=== PATIENT | male | born 1970 | race Caucasian/White ===

== ENCOUNTER → 2020-02-13 17:57 | Outpatient (CLI) | payer BC, SELFPAY ==
[2020-02-13 19:19] LABS: Chloride 99 mmol/L (98-107); Potassium 4.9 mmoL/L (3.5-5.1); Sodium 135 mmol/L (136-145)
[2020-02-13 19:21] LABS: Alanine Aminotransferase 13 U/L (12-78); Aspartate Amino Transferase 17 U/L (17-59); Blood Urea Nitrogen 14 mg/dl (9-20); Estimated Glomerular Filt Rate 102 ml/min (>60); GFR (African American) 123 ML/MIN (>60)
[2020-02-13 19:22] LABS: Albumin Level 3.8 g/dl (3.5-5.0); Albumin/Globulin Ratio 1.3 (1.1-1.8); Alkaline Phosphatase 101 U/L (38-126); Anion Gap 11.9 mEq/L (5-15); Bilirubin,Total 0.3 mg/dl (0.2-1.3); Calcium 9.3 mg/dl (8.4-10.2); Carbon Dioxide 29 mmol/L (22.0-30.0); Chol/HDL Ratio 4.8 (1-3.5); Cholesterol 203 mg/dl (140-200); Glucose 137 mg/dl (74-100); HDL Cholesterol 42 mg/dl (40-60); Total Protein,Serum 6.8 g/dl (6.3-8.2); Triglycerides 169 mg/dl (30-150); VLDL Cholesterol 34 mg/dL (0-40)
[2020-02-13 19:25] LABS: Hemoglobin A1C 8.5 % (4.0-6.0)
[2020-02-13 19:33] LABS: Direct LDL Cholesterol 136.82 mg/dL (100-129)
== END ==
PROVIDERS: Visit Provider Family Medicine
DX: E11.9 Type 2 diabetes mellitus without complications (principal); Z79.4 Long term (current) use of insulin
CPT/HCPCS: 80053; 80061; 83036

== ENCOUNTER → 2020-08-11 10:55 | Outpatient (CLI) | payer OTHER, SELFPAY ==
--- NOTE | 2020-08-11 11:04 | XR_ITS ---
PROCEDURE: XR KNEE RT 4V CLINICAL INDICATION: knee pain COMPARISON: No exams were available for comparison FINDINGS: No fracture or dislocation. No lytic or blastic change. There is normal mineralization. Moderate osteoarthritic changes are present involving the medial compartment and patellofemoral joint with small knee joint effusion noted. Other findings:None. IMPRESSION: Moderate osteoarthritis with possible small suprapatellar effusion Dictated by: Albert Carrero MD 08/11/2020 18:23 Albert Carrero MD in [place] 08/11/2020 18:23
== END ==
PROVIDERS: PCP Family Medicine; Visit Provider Family Medicine
DX: M25.561 Pain in right knee (principal)
CPT/HCPCS: 73564

== ENCOUNTER → 2020-10-27 14:55 | Outpatient (CLI) | payer OTHER, SELFPAY ==
[2020-10-27 15:08] LABS: Basophils # 0.1 K/mm3 (0-0.2); Basophils % 0.6 % (0.1-2.0); Eosinophils # 0.9 K/mm3 (0.0-0.4); Eosinophils % 6.2 % (0.1-12.0); Hematocrit 45.6 % (42.0-52.0); Hemoglobin 14.8 g/dL (14.1-18.0); Lymphocytes # 4.7 K/mm3 (0.7-4.5); Lymphocytes % 32.9 % (10-50); Mean Corpuscular HGB Conc 32.4 g/dL (31.8-35.4); Mean Corpuscular Hemoglobin 28.8 pg (27.0-31.2); Mean Corpuscular Volume 88.8 fl (80-94); Mean Platelet Volume 8.9 fl (7.4-10.4); Neutrophils # 7.6 K/mm3 (1.8-7.8); Neutrophils % 53.2 % (37.0-80.0); Platelet Count 360 K/mm3 (142-424); Red Blood Count 5.13 M/mm3 (4.60-6.20); Red Cell Distribution Width 12.9 % (11.5-17.5); White Blood Count 14.3 K/mm3 (4.8-10.8)
[2020-10-27 15:12] LABS: Chloride 102 mmol/L (98-107); Potassium 4.8 mmoL/L (3.5-5.1); Sodium 139 mmol/L (136-145)
[2020-10-27 15:14] LABS: Blood Urea Nitrogen 13 mg/dl (9-20); Estimated Glomerular Filt Rate 118 ml/min (>60)
[2020-10-27 15:15] LABS: Alanine Aminotransferase 11 U/L (12-78); Albumin Level 3.9 g/dl (3.5-5.0); Albumin/Globulin Ratio 1.3 (1.1-1.8); Alkaline Phosphatase 129 U/L (38-126); Anion Gap 13.8 mEq/L (5-15); Aspartate Amino Transferase 24 U/L (17-59); Bilirubin,Total 0.5 mg/dl (0.2-1.3); Calcium 9.4 mg/dl (8.4-10.2); Carbon Dioxide 28 mmol/L (22.0-30.0); Chol/HDL Ratio 3.7 (1-3.5); Cholesterol 121 mg/dl (140-200); GFR (African American) 143 ML/MIN (>60); Glucose 108 mg/dl (74-100); HDL Cholesterol 33 mg/dl (40-60); Total Protein,Serum 6.9 g/dl (6.3-8.2); Triglycerides 96 mg/dl (30-150); VLDL Cholesterol 19 mg/dL (0-40)
[2020-10-27 15:27] LABS: Direct LDL Cholesterol 62.29 mg/dL (100-129)
[2020-10-27 15:46] LABS: Thyroid Stimulating Hormone 2.23 uIU/mL (0.465-4.68)
[2020-11-11 10:23] LABS: Testosterone,Free 1.6 pg/mL (7.2-24.0)
== END ==
PROVIDERS: Visit Provider Family Medicine
DX: E11.9 Type 2 diabetes mellitus without complications (principal); E78.5 Hyperlipidemia, unspecified; E66.01 Morbid (severe) obesity due to excess calories; Z68.42 Body mass index [BMI] 45.0-49.9, adult; Z79.4 Long term (current) use of insulin
CPT/HCPCS: 80053; 80061; 83036; 84402; 84403; 84436; 84443; 85025

== ENCOUNTER → 2021-03-08 18:25 | Outpatient (CLI) | payer BC, SELFPAY ==
[2021-03-08 18:53] LABS: Basophils # 0.1 K/mm3 (0-0.2); Basophils % 0.7 % (0.1-2.0); Eosinophils # 0.7 K/mm3 (0.0-0.4); Eosinophils % 4.3 % (0.1-12.0); Hematocrit 43.7 % (42.0-52.0); Hemoglobin 14.4 g/dL (14.1-18.0); Lymphocytes # 5.2 K/mm3 (0.7-4.5); Lymphocytes % 31.5 % (10-50); Mean Corpuscular HGB Conc 32.9 g/dL (31.8-35.4); Mean Corpuscular Hemoglobin 28.3 pg (27.0-31.2); Mean Corpuscular Volume 86.1 fl (80-94); Mean Platelet Volume 8.6 fl (7.4-10.4); Monocytes # 0.9 K/mm3 (0.1-1.0); Monocytes % 5.6 % (1.7-9.3); Neutrophils # 9.6 K/mm3 (1.8-7.8); Neutrophils % 57.9 % (37.0-80.0); Platelet Count 379 K/mm3 (142-424); Red Blood Count 5.08 M/mm3 (4.60-6.20); Red Cell Distribution Width 13.6 % (11.5-17.5); White Blood Count 16.5 K/mm3 (4.8-10.8)
[2021-03-08 18:59] LABS: MANUAL DIFFERENTIAL MANUAL DIFFERENTIAL (MANUAL DIFF)
[2021-03-08 19:39] LABS: Eosinophils % 2 % (0-3); Lymphocytes % 31 % (10-50); Monocytes % 2 % (2-9); Neutrophils % 65 % (42-76); Platelet Estimate Normal; RBC Morphology Normal; Total Cells Counted 100
[2021-03-08 20:31] LABS: Hemoglobin A1C 6.9 % (4.0-6.0)
[2021-03-08 20:35] LABS: Alanine Aminotransferase 10 U/L (12-78); Albumin Level 3.9 g/dl (3.5-5.0); Albumin/Globulin Ratio 1.2 (1.1-1.8); Alkaline Phosphatase 140 U/L (38-126); Anion Gap 12.8 mEq/L (5-15); Aspartate Amino Transferase 20 U/L (17-59); Bilirubin,Total 0.5 mg/dl (0.2-1.3); Blood Urea Nitrogen 13 mg/dl (9-20); Calcium 8.9 mg/dl (8.4-10.2); Carbon Dioxide 31 mmol/L (22.0-30.0); Chloride 99 mmol/L (98-107); Chol/HDL Ratio 3.6 (1-3.5); Cholesterol 156 mg/dl (140-200); Estimated Glomerular Filt Rate 118 ml/min (>60); GFR (African American) 143 ML/MIN (>60); Globulin 3.2 g/dL (1.3-3.2); Glucose 76 mg/dl (74-100); HDL Cholesterol 43 mg/dl (40-60); Potassium 4.8 mmoL/L (3.5-5.1); Sodium 138 mmol/L (136-145); Total Protein,Serum 7.1 g/dl (6.3-8.2); Triglycerides 83 mg/dl (30-150); VLDL Cholesterol 17 mg/dL (0-40)
[2021-03-08 21:05] LABS: Prostate Specific Ag Screen 0.3 ng/ml (0.0-4.0)
[2021-03-13 14:39] LABS: Testosterone,Free 3.1 pg/mL (7.2-24.0)
== END ==
PROVIDERS: Visit Provider Family Medicine
DX: E11.9 Type 2 diabetes mellitus without complications (principal); E78.5 Hyperlipidemia, unspecified; E66.9 Obesity, unspecified; Z68.42 Body mass index [BMI] 45.0-49.9, adult; Z79.4 Long term (current) use of insulin; Z12.5 Encounter for screening for malignant neoplasm of prostate
CPT/HCPCS: 80053; 80061; 83036; 84402; 84403; 85007; 85025; G0103

== ENCOUNTER 2021-07-28 10:11 | Outpatient (CLI) | payer BC, SELFPAY ==
[2021-07-28 11:30] VITALS: BP 117/70; PULSE 70; RESP 18; TEMP 36.7; O2SAT 96
[2021-07-28 12:00] VITALS: BP 122/74; PULSE 73; RESP 18; O2SAT 95
[2021-07-28 12:15] VITALS: BP 121/68; PULSE 73; RESP 18; O2SAT 97
[2021-07-28 12:30] VITALS: BP 118/75; PULSE 69; RESP 18; O2SAT 97
[2021-07-28 12:45] VITALS: BP 125/82; PULSE 65; RESP 18; O2SAT 96
[2021-07-28 13:01] VITALS: BP 146/77; PULSE 67; RESP 18; TEMP 36.6; O2SAT 98
== END 2021-07-28 13:01 | disposition home or self-care (01) ==
LOC: COVID.OUT 10:12
PROVIDERS: PCP Family Medicine; Visit Provider Family Medicine
DX: U07.1 COVID-19 (principal); Z23 Encounter for immunization
CPT/HCPCS: 96365

== ENCOUNTER → 2023-01-10 23:10 | Outpatient (CLI) | payer BC, SELFPAY ==
[2023-01-10 19:12] LABS: Basophils # 0.1 K/mm3 (0-0.2); Basophils % 0.4 % (0.1-2.0); Eosinophils # 0.7 K/mm3 (0.0-0.4); Eosinophils % 6.2 % (0.1-12.0); Hemoglobin 13.7 g/dL (14.1-18.0); Lymphocytes # 3.2 K/mm3 (0.7-4.5); Lymphocytes % 29.3 % (10-50); Mean Corpuscular HGB Conc 31.8 g/dL (31.8-35.4); Mean Corpuscular Volume 88.2 fl (80-94); Mean Platelet Volume 9.4 fl (7.4-10.4); Monocytes # 0.9 K/mm3 (0.1-1.0); Monocytes % 7.8 % (1.7-9.3); Neutrophils # 6.2 K/mm3 (1.8-7.8); Neutrophils % 56.3 % (37.0-80.0); Platelet Count 333 K/mm3 (142-424); Red Blood Count 4.87 M/mm3 (4.60-6.20); Red Cell Distribution Width 13.6 % (11.5-17.5); White Blood Count 10.9 K/mm3 (4.8-10.8)
[2023-01-10 19:56] LABS: Alanine Aminotransferase 16 U/L (12-78); Albumin Level 3.5 g/dl (3.5-5.0); Albumin/Globulin Ratio 1.1 (1.1-1.8); Alkaline Phosphatase 142 U/L (38-126); Anion Gap 14.6 mEq/L (5-15); Aspartate Amino Transferase 22 U/L (17-59); Bilirubin,Total 0.2 mg/dl (0.2-1.3); Blood Urea Nitrogen 9 mg/dl (9-20); Calcium 8.7 mg/dl (8.4-10.2); Carbon Dioxide 29 mmol/L (22.0-30.0); Chloride 100 mmol/L (98-107); Chol/HDL Ratio 3.5 (1-3.5); Cholesterol 140 mg/dl (140-200); Estimated Glomerular Filt Rate 140 ml/min (>60); GFR (African American) 170 ML/MIN (>60); Globulin 3.2 g/dL (1.3-3.2); Glucose 122 mg/dl (74-100); HDL Cholesterol 40 mg/dl (40-60); Potassium 4.6 mmoL/L (3.5-5.1); Sodium 139 mmol/L (136-145); Total Protein,Serum 6.7 g/dl (6.3-8.2); Triglycerides 91 mg/dl (30-150); VLDL Cholesterol 18 mg/dL (0-40)
[2023-01-10 20:08] LABS: Direct LDL Cholesterol 77.42 mg/dL (100-129)
[2023-01-10 20:13] LABS: Hemoglobin A1C 7.1 % (4.0-6.0)
[2023-01-10 20:28] LABS: Prostate Specific Ag Screen 0.3 ng/ml (0.0-4.0); Thyroid Stimulating Hormone 2.56 uIU/mL (0.465-4.68)
[2023-01-10 21:37] LABS: Free T4 (Free Thyroxine) 1.26 ng/dl (0.78-2.19)
[2023-01-16 04:07] LABS: Free Testosterone (Direct) 1.1 pg/mL (7.2-24.0); Testosterone, Total, LC/MS 91.3 ng/dL (264.0-916.0)
== END ==
PROVIDERS: PCP Family Medicine; Visit Provider Family Medicine
DX: E11.9 Type 2 diabetes mellitus without complications (principal); E78.5 Hyperlipidemia, unspecified; Z12.5 Encounter for screening for malignant neoplasm of prostate; Z79.4 Long term (current) use of insulin
CPT/HCPCS: 80053; 80061; 83036; 84402; 84439; 84443; 85025; G0103

== ENCOUNTER 2024-04-05 09:20 | Outpatient (CLI) | payer BC, SELFPAY ==
[2024-04-05 18:47] LABS: Basophils # 0.1 K/mm3 (0-0.2); Basophils % 0.7 % (0.1-2.0); Eosinophils # 0.4 K/mm3 (0.0-0.4); Hematocrit 44.2 % (42.0-52.0); Hemoglobin 13.6 g/dL (14.1-18.0); Lymphocytes # 2.9 K/mm3 (0.7-4.5); Lymphocytes % 27.3 % (10-50); Mean Corpuscular HGB Conc 30.7 g/dL (31.8-35.4); Mean Corpuscular Hemoglobin 27.9 pg (27.0-31.2); Mean Platelet Volume 9.4 fl (7.4-10.4); Monocytes # 0.8 K/mm3 (0.1-1.0); Monocytes % 7.1 % (1.7-9.3); Neutrophils # 6.6 K/mm3 (1.8-7.8); Neutrophils % 61.1 % (37.0-80.0); Platelet Count 339 K/mm3 (142-424); Red Blood Count 4.86 M/mm3 (4.60-6.20); Red Cell Distribution Width 14.2 % (11.5-17.5); White Blood Count 10.8 K/mm3 (4.8-10.8)
[2024-04-05 19:14] LABS: Alanine Aminotransferase 16 U/L (12-78); Albumin Level 3.5 g/dl (3.5-5.0); Albumin/Globulin Ratio 1.1 (1.1-1.8); Alkaline Phosphatase 111 U/L (38-126); Aspartate Amino Transferase 22 U/L (17-59); Bilirubin,Total 0.5 mg/dl (0.2-1.3); Blood Urea Nitrogen 8 mg/dl (9-20); Calcium 9.1 mg/dl (8.4-10.2); Carbon Dioxide 29 mmol/L (22.0-30.0); Chloride 104 mmol/L (98-107); Chol/HDL Ratio 3.4 (1-3.5); Cholesterol 133 mg/dl (140-200); Estimated Glomerular Filt Rate 139 ml/min (>60); GFR (African American) 169 ML/MIN (>60); Globulin 3.3 g/dL (1.3-3.2); Glucose 92 mg/dl (74-100); HDL Cholesterol 39 mg/dl (40-60); Sodium 137 mmol/L (136-145); Total Protein,Serum 6.8 g/dl (6.3-8.2); Triglycerides 78 mg/dl (30-150); VLDL Cholesterol 16 mg/dL (0-40)
[2024-04-05 19:25] LABS: Direct LDL Cholesterol 74.98 mg/dL (100-129)
[2024-04-05 19:33] LABS: Anion Gap 8.8 mEq/L (5-15); Potassium 4.8 mmoL/L (3.5-5.1)
[2024-04-05 19:44] LABS: Prostate Specific Ag Screen 0.2 ng/ml (0.0-4.0)
[2024-04-07 06:46] LABS: Testosterone,Total 75 ng/dL (264-916)
[2024-04-09 14:17] LABS: Creatinine,Urine Random 45 mg/dL (Not Estab.)
[2024-04-09 14:20] LABS: Microalbumin < 6.000 mg/L (0-16.7)
== END 2024-04-05 23:59 | disposition home or self-care (01) ==
LOC: LAB.DROPOF 04-08 09:20
PROVIDERS: PCP Family Medicine; Visit Provider Family Medicine
DX: E29.1 Testicular hypofunction (principal); E11.9 Type 2 diabetes mellitus without complications
CPT/HCPCS: 80053; 80061; 82043; 82570; 84403; 85025; G0103

== ENCOUNTER 2024-11-27 14:50 | Outpatient (CLI) | payer BC, SELFPAY ==
[2024-11-27 18:43] LABS: Alanine Aminotransferase 16 U/L (12-78); Albumin Level 3.6 g/dl (3.5-5.0); Albumin/Globulin Ratio 1.1 (1.1-1.8); Alkaline Phosphatase 114 U/L (38-126); Anion Gap 10.5 mEq/L (5-15); Aspartate Amino Transferase 20 U/L (17-59); Bilirubin,Total 0.5 mg/dl (0.2-1.3); Blood Urea Nitrogen 9 mg/dl (9-20); Calcium 9.1 mg/dl (8.4-10.2); Carbon Dioxide 30 mmol/L (22.0-30.0); Chloride 100 mmol/L (98-107); Cholesterol 132 mg/dl (140-200); Estimated Glomerular Filt Rate 117 ml/min (>60); GFR (African American) 141 ML/MIN (>60); Globulin 3.2 g/dL (1.3-3.2); Glucose 107 mg/dl (74-100); HDL Cholesterol 33 mg/dl (40-60); Potassium 4.5 mmoL/L (3.5-5.1); Sodium 136 mmol/L (136-145); Total Protein,Serum 6.8 g/dl (6.3-8.2); Triglycerides 79 mg/dl (30-150); VLDL Cholesterol 16 mg/dL (0-40)
[2024-11-27 19:14] LABS: Thyroid Stimulating Hormone 1.82 uIU/mL (0.465-4.68)
[2024-11-27 19:33] LABS: Hepatitis C Ab Qual. W/ RFX NEGATIVE (Negative)
[2024-11-27 20:16] LABS: Direct LDL Cholesterol 82 mg/dL (100-129)
[2024-11-28 11:10] LABS: HIV Combo NEGATIVE (Negative)
[2024-11-29 08:13] LABS: Testosterone,Total 38 ng/dL (264-916)
== END 2024-11-27 23:59 | disposition home or self-care (01) ==
LOC: LAB.DROPOF 11-28 09:45
PROVIDERS: PCP Family Medicine; Visit Provider Family Medicine
DX: Z11.59 Encounter for screening for other viral diseases (principal); Z11.4 Encounter for screening for human immunodeficiency virus [HIV]; E66.01 Morbid (severe) obesity due to excess calories; Z68.42 Body mass index [BMI] 45.0-49.9, adult; E78.5 Hyperlipidemia, unspecified; E11.9 Type 2 diabetes mellitus without complications; Z79.84 Long term (current) use of oral hypoglycemic drugs; Z79.85 Long-term (current) use of injectable non-insulin antidiabetic drugs; Z79.4 Long term (current) use of insulin; Z68.43 Body mass index [BMI] 50.0-59.9, adult
CPT/HCPCS: 80053; 80061; 84146; 84403; 84443; 86803; 87389

== ENCOUNTER 2024-12-31 09:29 | Outpatient (CLI) | payer BC, SELFPAY ==
--- NOTE | 2024-12-31 09:15 | MR_ITS ---
FINAL REPORT CLINICAL HISTORY: elevated prolactin COMPARISON: None FINDINGS: Multiplanar MR imaging of the brain was performed without and with contrast. There is an intrasellar mass present, which measures 1.6 cm in the craniocaudal dimension, 1.3 cm in the transverse dimension, 2.0 cm in the AP dimension. This mass contains smooth margins, and enhances homogeneously after contrast administration, best seen on image #5 of series 12 through 14. The infundibulum is deviated to the left. This mass has smooth margins, and is either adjacent to the pituitary gland to arises from the pituitary gland. The broadest margin involves the lateral aspect of the sella turcica. This mass mildly displaces the cavernous portion of the carotid artery laterally. There are preserved flow voids in the bilateral carotid arteries. This mass either indents or actually invades the sphenoid sinus. There is no evidence of intracranial hemorrhage or mass. No abnormal extra-axial fluid collection is seen. The ventricular size is within normal limits. posterior fossa and brainstem have an unremarkable appearance. No area of abnormal restricted diffusion is identified. No abnormal contrast enhancement is seen. Normal major vessel vascular flow voids are noted. IMPRESSION: Large enhancing mass in the sella turcica as described above. The infundibulum of the pituitary gland is deviated to the left, and there is slight lateral displacement of the cavernous portion of the left carotid artery. The overall appearance and the degree of enhancement is not typical for pituitary macroadenoma. Included in the differential diagnosis are meningioma, lymphoma, or germ cell tumor. Neurosurgical evaluation is highly recommended. Reviewed, Interpreted and Dictated by Brian Olivas MD Transcribed by Nathaly aBtres Authenticated and [facility]
[2024-12-31 09:52] LABS: Blood Urea Nitrogen 13 mg/dl (9-20); Estimated Glomerular Filt Rate 100 ml/min (>60); GFR (African American) 121 ML/MIN (>60)
[2024-12-31] MEDS: GADOTERIDOL INJ 10ML SYRINGE 10 ML IV (10:55)
[2024-12-31] MEDS: SODIUM CHLORIDE 0.9% 50ML BAG 20 ML IV (10:55)
[2024-12-31] MEDS: SODIUM CHLORIDE 0.9% 10ML SYR (RAD ONLY) 10 ML IV (10:55)
[2024-12-31] MEDS: GADOTERIDOL INJ 20ML SYRINGE 20 ML IV (10:56)
== END 2024-12-31 23:59 | disposition home or self-care (01) ==
LOC: RAD 09:30
PROVIDERS: PCP Family Medicine; Visit Provider Family Medicine
DX: G93.89 Other specified disorders of brain (principal); R90.89 Other abnormal findings on diagnostic imaging of central nervous system; R79.89 Other specified abnormal findings of blood chemistry
CPT/HCPCS: 36415; 70553; 82565; 84520; A9576

== ENCOUNTER 2025-07-21 08:28 | Outpatient (CLI) | payer BC, SELFPAY ==
--- OUTSIDE RECORDS SUMMARY | 2025-06-24 08:30 | XMS_ITS | Encounter Summary ---
Author Organization [facility] Address [address] [place] [address] Care Team Providers Care Canvas Baster Jumpbasting Name Role Phone Unavailable Primary Care Provider Unavailabl e Reason for Visit * Reason Comments Labs Only Encounter Details Date Type Department Care Team (Late st Contact Info) Description 06/24/2025 8:30 AM EST Clinical Support [facility] [address] [place], [place] [phone] Grayson Barney MD [address] [place] [address] [address] [place] [address] Rocio Joy PA-C [address] [place] [address] [place] [address] Carmen Sagastume 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) Social History Tobacco Use Types Packs/Day Years Used Date Smoking Tobacco: Former Cigarettes 0.5 4 1 987 - 1990 Smokeless Tobacco: Never PHQ-2 Answer Date Recorded PHQ-2 SCORE 0 01/30/2025 Sex and Gender Information Value Date Recorded Sex Assigned at Not on file Legal Sex Male 9:37 AM EDT Gender Identity Not on file Sexual Orientation Not on file documented as of this encounter Progress Notes * Carmen Sagastume - 06/24/2025 8:30 AM EST Venipuncture Progress Notes RAC: LAC:1 (R) Hand: (L) Hand: Site Checked: yes Patient on anticoagulation therapy: no Tubes drawn: 1 red Tubes : no All tubes were labeled in room with patient present. My initials todays date and time of lab drawn were written on label, Pressure dressing applied. Instructions given in case of bleeding. Pt verbalized understanding. documented in this encounter Plan of Treatment Upcoming Encounters Date Type Department Care Team (Late st Contact Info) Description 10/21/2025 9:30 AM EDT Office Visit [facility] [address] [place] [phone] Grayson Barney MD [address] [place] [address] documented as of this encounter Visit Diagnoses Diagnosis Prolactinoma (HCC) [D35.2]- Primary Benign neoplasm of pituitary gland and craniopharyngeal duct (pouch) documented in this encounter
[2025-07-21 14:55] LABS: Hematocrit 43.3 % (42.0-52.0); Hemoglobin 13.7 g/dL (14.1-18.0); Immature Granulocytes % 0.2 %; Mean Corpuscular HGB Conc 31.6 g/dL (31.8-35.4); Mean Corpuscular Hemoglobin 27.6 pg (27.0-31.2); Mean Corpuscular Volume 87.3 fl (80-94); Nucleated Red Blood Cells % 0 %; Platelet Count 326 K/mm3 (142-424); Red Blood Count 4.96 M/mm3 (4.60-6.20); Red Cell Distribution Width-SD 42.1 fL; White Blood Count 10.3 K/mm3 (4.8-10.8)
[2025-07-21 15:40] LABS: Alanine Aminotransferase 14 U/L (12-78); Albumin Level 4.2 g/dl (3.5-5.0); Albumin/Globulin Ratio 1.3 (1.1-1.8); Alkaline Phosphatase 135 U/L (38-126); Anion Gap 11.8 mEq/L (5-15); Aspartate Amino Transferase 21 U/L (17-59); Bilirubin,Total 0.7 mg/dl (0.2-1.3); Blood Urea Nitrogen 9 mg/dl (9-20); Calcium 9.5 mg/dl (8.4-10.2); Carbon Dioxide 27 mmol/L (22.0-30.0); Chloride 104 mmol/L (98-107); Cholesterol 116 mg/dl (140-200); Creatinine,Serum 0.80 mg/dl (0.66-1.25); Estimated Glomerular Filt Rate 100 ml/min (>60); GFR (African American) 121 ML/MIN (>60); Globulin 3.2 g/dL (1.3-3.2); Glucose 77 mg/dl (74-100); HDL Cholesterol 33 mg/dl (40-60); Potassium 4.8 mmoL/L (3.5-5.1); Sodium 138 mmol/L (136-145); Total Protein,Serum 7.4 g/dl (6.3-8.2); Triglycerides 112 mg/dl (30-150)
--- OUTSIDE RECORDS SUMMARY | 2025-07-22 10:00 | XMS_ITS | Encounter Summary ---
Author Organization [facility] Address [address] [place] [address] Care Team Providers Care Car Mover Name Role Phone Unavailable Primary Care Provider Unavailabl e Reason for Visit * Reason Comments Pituitary Adenoma Encounter Details Date Type Department Care Team (Late st Contact Info) Description 07/22/2025 10:00 AM EST Office Visit [facility] [address] [place] [address] Grayson Barney MD [address] [facility] [address] [place] [address] Prolactinoma (HCC) (Primary Dx) Social History Tobacco Use Types Packs/Day Years Used Date Smoking Tobacco: Former Cigarettes 0.5 4 1 987 - 1990 Smokeless Tobacco: Never Tobacco Cessation:Counseling Given: Not Answered PHQ-2 Answer Date Recorded PHQ-2 SCORE 0 01/30/2025 Sex and Gender Information Value Date Recorded Sex Assigned at Not on file Legal Sex Male 9:37 AM EDT Gender Identity Not on file Sexual Orientation Not on file documented as of this encounter Last Filed Vital Signs Vital Sign Reading Time Taken Comments Blood Pressure 124/74 07/22/2025 10:11 AM EST Pulse 79 07/22/2025 10:11 AM EST Temperature - - Respiratory Rate 14 07/22/2025 10:11 AM EST Oxygen Saturation - - Inhaled Oxygen Concentration - - Weight 154.7 kg (341 lb) 07/22/2025 10:11 AM EST Height 188 cm (6' 2 ) 07/22/2025 10:11 AM EST Body Mass Index 43.78 07/22/2025 10:11 AM EST documented in this encounter Progress Notes * Grayson Barney MD - 07/22/2025 10:00 AM EST [facility] Grayson Colin MD 07/22/25 Vitaly Herman [id number] Reason For Visit: Chief Complaint Patient presents with Pituitary Adenoma Patient was referred by No ref. provider found Subjective: Vitaly Herman is a 55 y.o. male coming for a follow-up for prolactinoma and pituitary macroadenoma Patient states that was diagnosed with prolactinoma in [place] 17 yo ago, took Cabergoline for ayear but stopped taking after that Patient is currently on Cabergoline 0.5 mg every Monday and Testosterone gel 1 pump of 40.5mg daily Patient reports improvement in his energy level and improvement in low sex drive and erectile dysfunction. Denies breast tenderness. Denies headache, visual disturbance, nausea, vomiting, abdominal pain, syncope or dizziness. Past Medical History: Diagnosis Date Diabetes mellitus (HCC) Hyperlipidemia Hypertension Low testosterone in male Pituitary tumor Past Surgical History: Procedure Laterality Date HX OTHER SURGICAL HISTORY broken Jaw repair/oral surgery at 9 yrs old Family History Problem Relation Name Age of Onset Diabetes Father Current Outpatient Medications Medication Sig Dispense Refill cabergoline (DOSTINEX) 0.5 mg tablet Take 1 Tablet by mouth As directed. On Mondays and 12 Tablet 1 metFORMIN (GLUCOPHAGE) 1,000 mg tablet Take 1,000 mg by mouth Twice a day. insulin glargine (LANTUS SOLOSTAR U-100 INSULIN) 100 unit/mL (3 mL) InPn Administer 60 Units subcutaneously At bedtime. atorvastatin (LIPITOR) 20 mg tablet Take 20 mg by mouth At bedtime. lisinopriL (PRINIVIL) 20 mg tablet Take 20 mg by mouth Once Daily. tirzepatide (MOUNJARO) 10 mg/0.5 mL sub-Q injection Administer 10 mg subcutaneously Every 7 days testosterone 1.62 % (40.5 mg/2.5 gram) GlPk 40.5 mg by Transdermal route Once Daily. No current facility-administered medications for this visit. No Known Allergies Social History Socioeconomic History Marital status: Spouse name: Not on file Number of children: Not on file Years of education: Not on file Highest education level: Not on file Occupational History Not on file Tobacco Use Smoking status: Former Current packs/day: 0.00 Average packs/day: 0.5 packs/day for 4.0 years (2.0 ttl pk-yrs) Types: Cigarettes Start date: 1986 Quit date: 1990 Years since quittin.9 Smokeless tobacco: Never Substance and Sexual Activity Alcohol use: Not on file Drug use: Not on file Sexual activity: Not on file Other Topics Concern Not on file Social History Narrative Not on file Social Drivers of Health Financial Resource Strain: Not on file Food Insecurity: Not on file Transportation Needs: Not on file Physical Activity: Not on file Stress: Not on file Social Connections: Not on file Intimate Partner Violence: Not on file Housing Stability: Not on file Review of Systems Pertinent items are noted in HPI. Objective: BP 124/74 Pulse 79 Resp 14 Ht 6' 2 (188 cm) Wt (!) 154.7 kg (341 lb) BMI 43.78 kg/m?? General: alert, cooperative Thyroid: no palpable nodule Lung: clear to auscultation bilaterally Heart: regular rate and rhythm, S1, S2 normal, no murmur, click, rub or gallop Lab Review Latest Reference Range & Units 02/11/25 08:01 06/24/25 08:09 PROLACTIN ng/mL 124.00 16.80 Assessment: 1 Pituitary macroadenoma and elevated prolactin - Patient states that was diagnosed with prolactinoma in [place] 17 yo ago (around 2005), took Cabergoline for a year but stopped taking after that -Patient is currently on Cabergoline 0.5 mg every Monday and Testosterone gel 1 pump of 40.5 mg daily - MRI brain done on 12/31/24 showed pituitary nodule measuring 1.6 x 1.3 2.0 cm, infundibulum is deviated to the left, involves the lateral aspect of the sella turcica, and mildly displaces the cavernous portion of the carotid artery laterally. - Labs done on 11/27/24 showed TSH 1.82, prolactin 1526 ng/mL and total testosterone of 38 ng/dL - Labs done on 02/11/25 showed prolactin 124 ng/mL, total testosterone 63.5 ng/dL, normal CMP, IGF-1,LH, FSH, ACTH, cortisol, TSH and FT4 - Labs done on 06/24/25 showed prolactin 16.8 Plan: 1 Pituitary macroadenoma and elevated prolactin - Continue Cabergoline 0.5 mg every Monday and - I will check CMP and prolactin before next visit Plan of care was discussed in detail with the patient who verbalized understanding and agreed. Patient was given opportunity to ask questions which were answered appropriately. Follow up: 3 months Grayson Garrido MD 07/22/25 10:17 AM documented in this encounter Plan of Treatment Upcoming Encounters Date Type Department Care Team (Late st Contact Info) Description 10/21/2025 9:30 AM EDT Office Visit [facility] [address] [place] [address] Grayson Barney MD [address] [place] [address] Scheduled Orders Name Type Priority Associated Diagnoses Orde r Schedule Comprehensive Metabolic Panel Lab Routine Prolactinoma (HCC) Expected: 10/20/2025, Expires: 07/22/2026 Prolactin Lab Routine Prolactinoma (HCC) Expected: 10/20/2025, Expires: 07/22/2026 documented as of this encounter Visit Diagnoses Diagnosis Prolactinoma (HCC)- Primary Benign neoplasm of pituitary gland and craniopharyngeal duct (pouch) documented in this encounter
[2025-07-22 10:12] LABS: Testosterone,Total 251 ng/dL (264-916)
--- OUTSIDE RECORDS SUMMARY | 2025-07-23 08:34 | XMS_ITS | Encounter Summary ---
Author Organization [facility] Address [address] [place] [address] Care Team Providers Care Retail Director Name Role Phone Unavailable Primary Care Provider Unavailabl e Encounter Details Date Type Department Care Team (Latest Contact Info) Description 06/24/2025 Travel Social History Tobacco Use Types Packs/Day Years [...] on file documented as of this encounter Plan of Treatment Upcoming Encounters Date Type Department Care Team (Late st Contact Info) Description 10/21/2025 9:30 AM EDT Office Visit [facility] [address] [place] [address] Grayson Barney MD [address] [place] [address] [place] [address] documented as of this encounter Visit Diagnoses Not on filedocumented in this encounter
--- OUTSIDE RECORDS SUMMARY | 2025-07-23 08:34 | XMS_ITS | Encounter Summary ---
Author Organization [facility] Address [address] [place] [address] Care Team Providers Care Engineering Group Manager Name Role Phone Unavailable Primary Care Provider Unavailabl e Reason for Visit * Reason Onset Date Comments Medications Refill 07/17/2025 Encounter Details Date Type Department Care Team (Late st Contact Info) Description 07/17/2025 Refill [facility] [address] [place] [phone] Grayson Barney MD [address] [place] [address] Pituitary macroadenoma (HCC); Prolactin increased Social History Tobacco Use Types Packs/Day Years [...] on file documented as of this encounter Miscellaneous Notes * Telephone Encounter - Grayson Barney MD - 07/17/2025 1:27 PM EST Please schedule a follow-up appointment documented in this encounter Plan of Treatment Upcoming Encounters Date Type Department Care Team (Late st Contact Info) Description 10/21/2025 9:30 AM EDT Office Visit [facility] [address] [facility] [address] Grayson Barney MD [address] [place] [address] documented as of this encounter Visit Diagnoses Diagnosis Pituitary macroadenoma (HCC) Benign neoplasm of pituitary gland and craniopharyngeal duct (pouch) Prolactin increased Other and unspecified anterior pituitary hyperfunction documented in this encounter
--- OUTSIDE RECORDS SUMMARY | 2025-07-23 08:34 | XMS_ITS | Encounter Summary ---
Author Organization [facility] Address [address] [place] [address] Care Team Providers Care Social Worker Health Services Name Role Phone Unavailable Primary Care Provider Unavailabl e Encounter Details Date Type Department Care Team (Late st Contact Info) Description 06/25/2025 Results Follow-Up [facility] [address] [facility] [address] [place] [address] Grayson Barney MD [address] [place] [address] [place] [address] Prolactin Social History Tobacco Use Types Packs/Day Years [...] [facility] [address] [place] [address] Grayson Barney MD [address] [facility] [address] [place] [address] documented as of this encounter Visit Diagnoses Not on filedocumented in this encounter
--- OUTSIDE RECORDS SUMMARY | 2025-07-23 08:35 | XMS_ITS | Encounter Summary ---
Author Organization [facility] Address [address] [place] [address] Care Team Providers Care Juke Box Mechanic Name Role Phone Unavailable Primary Care Provider Unavailabl e Encounter Details Date Type Department Care Team (Latest Contact Info) Description 07/22/2025 Travel Social History Tobacco Use Types Packs/Day [...] AM EDT Office Visit [facility] [address] [place] [address] Grayson Barney MD [address] [place] [address] [place] [address] documented as of this encounter Visit Diagnoses Not on filedocumented in this encounter
--- OUTSIDE RECORDS SUMMARY | 2025-07-23 08:35 | XMS_ITS | Clinical Summary ---
Author Organization [facility] Address [address] [place] [phone] Phone Care Team Providers Care Radio Control Crane Operator Name Role Phone Unavailable Primary Care Provider Unavailabl e Allergies No known active allergies Medications No known medications Active Problems No known active problems Family History Medical History Relation Name Comments Diabetes Father Hypertension Father Relation Name Status Comments Father Social History Tobacco Use Types Packs/Day Years Used Date Smoking Tobacco: Never Smokeless Tobacco: Never Tobacco Cessation:Counseling Given: No Alcohol Use Standard Drinks/Week Comments Yes 0 (1 standard drink = 0.6 oz pur e alcohol) SOCIAL Sex and Gender Information Value Date Recorded Sex Assigned at Not on file Legal Sex Male 11:39 AM EST Gender Identity Not on file Sexual Orientation Not on file Last Filed Vital Signs Vital Sign Reading Time Taken Comments Blood Pressure 122/80 08/16/2017 4:31 PM EST Pulse 78 08/16/2017 4:31 PM EST Temperature - - Respiratory Rate - - Oxygen Saturation - - Inhaled Oxygen Concentration - - Weight 166.2 kg (366 lb 8 oz) 08/16/2017 4:31 PM EST Height 187.3 cm (6' 1.75 ) 08/16/2017 4:31 PM ES T Body Mass Index 47.38 08/16/2017 4:31 PM EST Plan of Treatment Health Maintenance Due Date Last Done Comments DTap,Tdap,and Td (1 - Tdap) 02/07/1979 Colonoscopy 02/07/2013 PSA YEARLY 02/07/2018 Pneumococcal 50+ (1 of 1 - PCV) 02/07/2018 Shingrix (#1) 02/07/2018 Influenza Vaccine (#1) 2025 RSV Vaccine (60+ or ) (1 - 1-dose 75+ series) 02/07/2043 HPV Aged Out No longer eligi ble based on patient's age to complete this topic Meningococcal conjugate rain nt 4 (MCV4) Aged Out No longer eligible b ased on patient's age to complete this topic RSV Immunization (<20 months) Aged Out No longer eligible based on patient's age to complete this topic Insurance [facility] ALL OTHERS NOT MEDICARE
--- OUTSIDE RECORDS SUMMARY | 2025-07-23 08:35 | XMS_ITS | Clinical Summary ---
Author Organization [facility] Address [address] [place] [address] Care Team Providers Care Network Architect Name Role Phone Unavailable Primary Care Provider Unavailabl e Allergies No known active allergies Medications metFORMIN (GLUCOPHAGE) 1,000 mg tablet Take 1,000 mg by mouth Twice a day. Active insulin glargine (LANTUS SOLOSTAR U-100 INSULIN) 100 unit/mL (3 mL) InPn Administer 60 Units subcutaneously At bedtime. Active atorvastatin (LIPITOR) 20 mg tablet Take 20 mg by mouth At bedtime. Active lisinopriL (PRINIVIL) 20 mg tablet Take 20 mg by mouth Once Daily. Active tirzepatide (MOUNJARO) 10 mg/0.5 mL sub-Q injection Administer 10 mg subcutaneously Every 7 days Active testosterone 1.62 % (40.5 mg/2.5 gram) GlPk 40.5 mg by Transdermal route Once Daily. Active cabergoline (DOSTINEX) 0.5 mg tabletIndication s:Pituitary macroadenoma (HCC),Prolactin increased Take 1 Tablet by mouth As directed. On Mondays and 12 Tablet 1 07/17/20 25 Active cabergoline (DOSTINEX) 0.5 mg tabletIndication s:Pituitary macroadenoma (HCC),Prolactin increased Take 1 Tablet by mouth As directed. On Mondays and 24 Tablet 2 01/31/20 25 025 Discontin ued(Reord er) Active Problems No known active problems Encounters Date Type Department Care Team Description 07/22/2025 10:00 AM EST Office Visit [facility] [address] [facility] [address] [place] [address] Grayson Barney MD Prolactinoma (HCC) (Primary Dx) 07/22/2025 Travel 07/17/2025 Refill [facility] [address] [facility] [address] [place] [address] Grayson Barney MD Pituitary macroadenoma (HCC); Prolactin increased 06/25/2025 Results Follow-Up [facility] [address] [phone] Grayson Barney MD Prolactin 06/24/2025 8:30 AM EST Clinical Support [facility] [address] [place] [address] [address] [place] [address] Grayson Barney MD Vize, Ashley L, PA-C Carper, Christina 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) 06/24/2025 Travel from Last 3 Months Family History Medical History Relation Name Comments Diabetes Father Relation Name Status Comments Father Social [...] Mass Index 43.78 07/22/2025 10:11 AM EST Plan of Treatment Upcoming Encounters Date Type Department Care Team (Late st Contact Info) Description 10/21/2025 9:30 AM EDT Office Visit [facility] [address] [facility] [place] [address] Grayson Barney MD [address] [facility] [address] [place] [address] Health Maintenance Due Date Last Done Comments COLOGUARD 1968 COLONOSCOPY 1968 Colorectal Screening Combination 1968 FIT 1968 HEP C SCREENING 1968 SIGMOIDOSCOPY 1968 ANNUAL WELLNESS EXAM 02/07/1971 Shingles Vaccine (Shingrix) (1 of 2) 02/07/2018 DTAP/TDAP/TD VACCINE (2 - Td or Tdap) 08/27/2022 08/27/2012 COVID-19 Vaccine (3 - season) 2025 11/12/2020, 10/22/2020 INFLUENZA VACCINE (#1) 2025 , 06/03/2020, 06/18/2018, Additional history exists CT Colonography Completed HEP A VACCINE Aged Out No longer elig ible based on patient's age to complete this topic HIB VACCINE Aged Out No longer eligi ble based on patient's age to complete this topic ROTOVIRUS VACCINE Aged Out No longer eligible based on patient's age to complete this topic Procedures Procedure Name Priority Date/Time Associated Diagnosis Comments PROLACTIN Routine 06/24/2025 8:09 AM EST Prolactinoma (HCC) from Last 3 Months Results * Prolactin (06/24/2025 8:09 AM EST) PROLACTIN 16.80 ng/mL 06/24/2025 2:37 PM EST [facility] Comment: EXPECTED VALUES PRL ng/ml MALES 2.64-13.13 FEMALES Premenopausal 3.34-26.72 (<50 years of age) Postmenopausal 2.74-19.64 (=>50 years of age) 06/24/2025 8:09 AM EST 06/24/2025 1:49 PM EST Narrative [facility] - 06/24/2025 2:37 PM EST NO KNOWN ALLERGIES us Grayson Garrido MD CHEMISTRY ORDERABLES Fin al Result [facility] [address] [place], [place] [address] [place] [address] LAB [address] [place] [address] from Last 3 Months Insurance
--- OUTSIDE RECORDS SUMMARY | 2025-07-23 08:35 | XMS_ITS | Clinical Summary ---
Author Organization [facility] 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 Active sildenafil (VIAGRA) 100 MG tablet Take 1 tablet by mouth as needed for Erectile Dysfunction. 10 tablet 5 12/04/2012 Active cabergoline (DOSTINEX) 0.5 MG tablet Take 0.5 tablets by mouth twice a week. 8 tablet 3 02/04/2013 Active Testosterone 4 MG/24HR PT24 Apply 1 patch qd to upper torso 30 patch 3 12/28/2015 Active Active Problems Problem Noted Date Diagnosed Date Ventral hernia without obstruction or gangrene 0 12/15/2015 Obesity 08/27/2012 Overview (08/27/2012): weight gain of 85 lbs over the past 1-2 yrs , saw Dr. Walker last month , started diet and has lost 24 lbs since then on 1600 calories / day. 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 Baseline weight was in the 235 -240 when he got . Testosterone deficiency 08/27/2012 Overview (08/30/2012): weight gain of 85 lbs over the past 1-2 yrs , saw Dr. Walker last month , started diet and has lost 24 lbs since then on 1600 calories / day. 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 Baseline weight was in the 235 -240 when he got . Sever deficiency 08/2012 , given referral for injections Dr. Ochoa , Dr. Ocampo , Dr. Dickerson Pure hypercholesterolemia 08/27/2012 Right knee meniscal tear 08/27/2012 Overview (08/27/2012): Medial from playing football , clicking and stiffness , no locking Resolved Problems Problem Noted Date Diagnosed Date Resolved Date Preventative health care 08/27/2012 Overview (08/27/2012): current on screenings and vaccines Immunizations Immunization Administration Dates Next Due Influenza Virus Vaccine 04/21/2015,06/07/2012 TDaP, ADACEL (age 10y-64y), BOOSTRIX (age 10y+), IM, 0.5mL 08/27/2012 Family History Medical History Relation Name Comments Other Brother 2 Yinka Healthy Diabetes Father Vitaly Other Mother Karol sarcoidosis Thyroid Disease Mother Karol Relation Name Status Comments Brother 1 Alive Brother 2 Yinka Father Vitaly Alive Mother Karol Alive Social History Tobacco Use Types Packs/Day Years Used Date Smoking Tobacco: Former Cigarettes 0.5 10 0 08/07/2000 - 08/07/2010 Smokeless Tobacco: Never Alcohol Use Standard Drinks/Week Comments Yes 0 (1 standard drink = 0.6 oz pur e alcohol) Rarely Sex and Gender Information Value Date Recorded Sex Assigned at Not on file Legal Sex Male 1:39 AM EST Gender Identity Not on file Sexual Orientation Not on file 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 Not on file Not on file N ot on file Last Filed Vital Signs Vital Sign Reading Time Taken Comments Blood Pressure 144/76 12/15/2015 3:59 PM EDT Right arm sitting-large cuff Pulse 76 12/15/2015 3:55 PM EDT Regular Temperature 36.3 C (97.3 F) 10/23/2013 11:52 AM EDT Respiratory Rate 20 12/15/2015 3:55 PM EDT Oxygen Saturation 100% 02/01/2013 9:4 1 AM EDT Inhaled Oxygen Concentration - - Weight 170.6 kg (376 lb) 12/15/2015 3:5 5 PM EDT 10/23/2013 weight =353 lbs Height 189.5 cm (6' 2.61 ) 02/01/2013 9 :41 AM EDT Body Mass Index 47.49 02/01/2013 9:41 AM EDT Plan of Treatment Not on file Insurance Advance Directives Documents on File Type Date Recorded 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
--- OUTSIDE RECORDS SUMMARY | 2025-07-23 08:35 | XMS_ITS | Clinical Summary ---
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 Role Phone Unavailable Primary Care Provider Unavailabl e Immunizations Immunization Administration Dates Next Due Pfizer SARS-CoV-2 Vaccine 12+ Yrs (Purple Cap) 0 11/12/2020,10/22/2020 Social History Tobacco Use Types Packs/Day Years Used Date Smoking Tobacco: Never Assessed Sex and Gender Information Value Date Recorded Sex Assigned at Not on file Legal Sex Male 2:25 PM EDT Gender Identity Not on file Sexual Orientation Not on file Plan of Treatment Health Maintenance Due Date Last Done Comments Annual Wellness Exam 02/07/1971 Hepatitis B Vaccine (1 of 3 - 19+ 3-dose series) 02/07/1987 Cologuard 02/07/2013 Colon Cancer Screening 02/07/2013 Colonoscopy 02/07/2013 FIT 02/07/2013 Sigmoidoscopy 02/07/2013 Virtual Colonography 02/07/2013 Pneumococcal Vaccine 50+ (1 of 1 - PCV) 02/07/2018 Zoster (1 of 2) 02/07/2018 DTaP/TDaP/Td (2 - Td or Tdap) 08/27/2022 08/27/2012 COVID-19 Vaccine (3 - 2024-2 6 season) 2025 11/12/2020, 10/22/2020 Influenza Vaccine (#1) 2025 , 06/03/2020, 06/18/2018 Meningococcal B Vaccine Aged Out No l onger eligible based on patient's age to complete this topic Insurance [id number] [id number]
== END 2025-07-21 23:59 | disposition home or self-care (01) ==
LOC: LAB.DROPOF 07-23 08:29
PROVIDERS: PCP Family Medicine; Visit Provider Family Medicine
DX: E29.1 Testicular hypofunction (principal); E11.9 Type 2 diabetes mellitus without complications; E66.01 Morbid (severe) obesity due to excess calories; Z68.42 Body mass index [BMI] 45.0-49.9, adult; Z12.5 Encounter for screening for malignant neoplasm of prostate
CPT/HCPCS: 80053; 80061; 84403; 85025; G0103